=== PATIENT | male | born 1945 | race Caucasian/White ===

== ENCOUNTER 2019-02-16 10:51 | Outpatient (RCR) | payer OTHER | END 2019-02-22 | LOC: RESP 10:51 | PROVIDERS: ATTEND Internal Medicine Pulmonary Disease | DX: J44.9 Chronic obstructive pulmonary disease, unspecified (principal); R06.02 Shortness of breath; I73.9 Peripheral vascular disease, unspecified; I10 Essential (primary) hypertension; G57.60 Lesion of plantar nerve, unspecified lower limb; Z87.891 Personal history of nicotine dependence | CPT/HCPCS: G0238 ×3; G0424 ×3 ==

== ENCOUNTER 2019-03-05 08:50 | Outpatient (RCR) | payer OTHER | END 2019-03-25 | LOC: RESP 08:50 | PROVIDERS: ATTEND Internal Medicine Pulmonary Disease | DX: J44.9 Chronic obstructive pulmonary disease, unspecified (principal) | CPT/HCPCS: G0238 ×13; G0424 ×13 ==

== ENCOUNTER 2019-04-16 08:00 | Outpatient (RCR) | payer OTHER | END 2019-04-24 | LOC: RESP 08:00 | PROVIDERS: ATTEND Internal Medicine Pulmonary Disease | DX: J44.9 Chronic obstructive pulmonary disease, unspecified (principal); R06.02 Shortness of breath; I73.9 Peripheral vascular disease, unspecified; I10 Essential (primary) hypertension; R05 Cough | CPT/HCPCS: G0238 ×10; G0424 ×10 ==